=== PATIENT | female | born 1955 | race Caucasian/White ===

== ENCOUNTER 2016-10-13 21:11 | Inpatient (IN) | payer BC ==
[~2016-10-13] VITALS: Ht 162.6 cm; Wt 100.0 kg
[~2016-10-13 21:11] MED LIST: IBUP-1277 PO; ONDA4TAB7 SL
[2016-10-13] MEDS ORDERED: ONDANSETRON INJ 2 MG/ML 2 ML VIAL IV STA (21:37)
[2016-10-13] MEDS ORDERED: MoRPHine SULFATE 10 MG/ML CARP/VIAL IV STA (21:37)
[2016-10-13] MEDS ORDERED: DIPHTHERIA/TETANUS/PERTUSSIS 0.5 ML SYR/VIAL IM. ONE (21:45)
[2016-10-13] MEDS ORDERED: SODIUM CHLORIDE 0.9% 1000ML 1,000 ML IV ONE (21:45)
[2016-10-13 21:47] LABS: BASO % 0.2 %; BASO ABS # 0.03 K/uL (0-0.2); COMPLETE YES; EOS % 1.2 %; HEMATOCRIT 35.8 % (37-47); IG% 0.2 %; LYMPH % 30.7 %; MEAN CELL VOLUME 79.6 fL (80-100); MEAN CORPUSCULAR HEMOGLOBIN 26.4 pg (25-34); MEAN CORPUSCULAR HGB CONC 33.2 g/dl (32-36); MEAN PLATELET VOLUME 9.2 fL (7.4-10.4); MONO % 7.7 %; PLATELET COUNT 323 K/uL (130-400); WHITE BLOOD COUNT 12.04 K/uL (4.8-10.8)
[2016-10-13 22:01] LABS: BUN/CREATININE RATIO 17.2 (10-20); CALCIUM 8.6 mg/dl (8.5-10.1); CREATININE 0.83 mg/dl (0.60-1.20); POTASSIUM 3.8 mmol/L (3.5-5.1)
[2016-10-13 22:04] LABS: ALB/GLOB RATIO 0.9 (0.9-2)
[2016-10-13] MEDS ORDERED: ESCI1TAB10 PO (22:39)
[2016-10-13] MEDS ORDERED: FENTANYL CITRATE INJ 50 MCG/1 ML 2 ML VIAL ONE (22:50)
[2016-10-13] MEDS ORDERED: MIDAZOLAM HCL 1 MG/ML 2ML VIAL ONE (22:50)
[2016-10-13] MEDS ORDERED: CEFAZOLIN IV 2,000 MG/60 ML D5W IV ONE (23:08)
[2016-10-13] MEDS ORDERED: CEFAZOLIN SOD 1000MG/55 ML D5W IV ONE (23:08)
[2016-10-13] MEDS ORDERED: ATROPINE SULFATE 0.1 MG/ML 5ML SYR IV PRN (23:15)
[2016-10-13] MEDS ORDERED: PROMETHAZINE HCL INJ 12.5 MG in SODIUM CHLORIDE 0.9% 50ML 50 ML IV PRN (23:15)
[2016-10-13] MEDS ORDERED: HYDROmorphone INJ 2 MG/ML SYR/VIAL IV PRN (23:15)
[2016-10-13] MEDS ORDERED: ONDANSETRON INJ 2 MG/ML 2 ML VIAL IV PRN (23:15)
--- NOTE | 2016-10-13 23:50 | GYNECOLOGICAL CONSULTATION ---
DATE OF ADMISSION: 10/13/2016 PRINCIPAL DIAGNOSIS: Extensive vaginal laceration and perineal laceration. HISTORY OF PRESENT ILLNESS: The patient is a 60-year-old 3, para 3-0-0-3 white female who lost her footing on a flight of stairs and fell awkwardly over the railing, potentially catching a coat hook on the way down. She has contusions on her ankle, wrist, left avila as well as a contusion on top of her head. She did not lose consciousness; however, her biggest injury appears to be significant vaginal bleeding from this tear. She soaked [address] into the hospital. Upon arrival here, there was more clotting and soaking of several chucks. Initial packing efforts were unsuccessful. Vaginal exam reveals alot of clots and active bleeding so examination was difficult. She also has a perineal laceration present. There is no hematoma present. The vagina was then packed and bleeding has been significantly reduced, although there is still a small amount of bleeding present. Because of the significant & ongoing bleeding , an exam & repair under anesthesia is warranted. The patient agrees with this plan. Family has been notified and all of their questions have been answered. PAST MEDICAL HISTORY: Unremarkable. PAST SURGICAL HISTORY: Significant for tubal ligation, section and a total abdominal hysterectomy and bilateral oophorectomy in 2009. ALLERGIES: She has no known drug allergies. MEDICATIONS: She takes no medications regularly. SOCIAL HISTORY: She is a social drinker. She does not smoke. PHYSICAL EXAMINATION: VITAL SIGNS: Blood pressure is stable at 129/77, pulse is 72. LUNGS: Clear to auscultation. HEART: Regular rate and rhythm. ABDOMEN: Soft and nontender. PELVIC: Contusions as noted in the HPI. There appears to be a second degree laceration of the perineum at least. No palpable vaginal hematoma present at this time. ASSESSMENT: A 60-year-old with at least an extensive perineal laceration actively bleeding, to be repaired in the OR under general anesthetic. Please see the orders for further directions. MTDD
[2016-10-13] MEDS ORDERED: ONDANSETRON INJ 2 MG/ML 2 ML VIAL ONE (23:54)
[2016-10-13] MEDS ORDERED: SUCCINYLCHOLINE 100MG/5ML SYR IV ONE (23:54)
[2016-10-13] MEDS ORDERED: LIDOCAINE HCL 2% 2 ML VIAL (20MG/ML) ONE (23:54)
[2016-10-13] MEDS ORDERED: METOCLOPRAMIDE HCL INJ 5 MG/ML 2 ML VIAL ONE (23:54)
[2016-10-13] MEDS ORDERED: PROPOFOL IV EMULSION 10 MG/ML 20 ML VIAL IV ONE (23:54)
[2016-10-14] VITALS (10 sets, daily range): BP systolic 107–126; BP diastolic 57–68; PULSE 69–94; TEMP 36.5–37.2; O2SAT 97–98; Ht 162.6 cm; Wt 100.0 kg
--- NOTE | 2016-10-14 00:21 | Anesthesiology Progress Note ---
Anesthesia Post Op Note Date & Time Oct 14, 2016 at 00:21 Vital Signs Vital Signs Past 12 Hours Date Time Temp Pulse Resp B/P (MAP) Pulse Ox O2 Delivery O2 Flow Rate FiO2 10/13/16 21:56 72 20 129/77 98 Room Air 10/13/16 21:33 67 10/13/16 21:19 36.4 70 18 150/86 98 Room Air Notes Mental Status: alert / awake / arousable, participated in evaluation Pt Amnestic to Procedure: Yes Nausea / Vomiting: adequately controlled Pain: adequately controlled Airway Patency, RR, SpO2: stable & adequate BP & HR: stable & adequate Hydration State: stable & adequate Anesthetic Complications: no major complications apparent
[2016-10-14] MEDS ORDERED: BENZOCAINE 20% AER SPR 82.5 GM CAN ONE ×2 (00:42→13:46)
[2016-10-14] MEDS ORDERED: IBUPROFEN 600 MG TAB PO PRN (00:45)
[2016-10-14] MEDS ORDERED: OXYCODONE/ACETAMINOPHEN 5-325 TAB PO PRN ×3 (00:45→06:00)
[2016-10-14] MEDS ORDERED: ONDANSETRON INJ 2 MG/ML 2 ML VIAL IV PRN ×2 (00:45→06:00)
[2016-10-14] MEDS ORDERED: PROMETHAZINE HCL INJ 25 MG in SODIUM CHLORIDE 0.9% 50ML 50 ML IV PRN (00:45)
--- NOTE | 2016-10-14 00:52 | Discharge Instructions ---
Discharge Instructions Date of Service Oct 14, 2016. Admission Reason for Admission: Fall Down Half Flight Of Stairs - Bleeding Discharge Discharge Diagnosis / Problem: recovery from laceration repair Discharge Goals Goal(s): Routine recovery after surgery Medications Continue Dispensed Medications: dermaplast Activity Recommendations Activity Limitations: per Instructions/Follow-up section Exercise/Sports Limitations: gradually increase as tolerated May Resume Sexual Activity: after follow-up appointment Shower/Bathe: no limitations . Instructions / Follow-Up Instructions / Follow-Up ACTIVITY RECOMMENDATIONS: Activity: * During the first week at home, your activity should be similar to that done at the hospital prior to discharge. Your primary activity is in-house walking interspersed with rest periods. Preparing lunch for yourself is acceptable. You may go up and down stairs. Try to stay up progressively longer periods of time to help regain your strength more quickly. * During the second week at home, activities should include some meal preparation, walking to strengthen abdominal muscles and riding in a car. You may drive a car and make brief shopping trips at the end of the second week at home. * Lifting should not exceed 15-20 pounds during the first month after surgery. * Sexual intercourse can usually be resumed about 6 weeks after surgery depending on findings at your post-operative examinations. Bathing: * Showers or baths are permissible. Sitting in four to six inches of hot water (sitz bath) is often comforting after vaginal surgery and is permitted at any time. A sitz bath at bedtime can also assist in a better night's sleep. SPECIAL CARE INSTRUCTION: Keep ice to the vaginal area for the next 12 hours. You may then start sitz baths twice a day for the next 2 weeks. You may use Dermaplast spray to the stitches as needed for pain relief. Wash the area gently with mild soap & warm water daily then pat dry. The stitches will start to dissolve after about 2-3 weeks. You may use a squirt bottle to clean the area after using the toilet. Plain warm water is all that is needed to cleanse the area. Vaginal Discharge: * Odorous, blood-tinged or brownish discharge may be present for one to three weeks after surgery. * Stitches may be passed vaginally. * Bleeding may be somewhat increased approximately two weeks after surgery, which is related to the stitches dissolving. * If bleeding becomes free flowing, notify our office at . Bowel Care: * Constipation after surgery is very common. Foods that promote bowel activity (bran, fruit, prune juice) should be included in your diet. * A capsule, DIALOSE-PLUS, can be purchased without a prescription and can be taken daily (one or two capsules) to assist in promoting bowel activity. * If you have had vaginal surgery involving your rectum, we will discuss this when discharged from the hospital. Temperature: * Any fever above 100.4 degrees F should be reported to our office at . FOLLOW-UP: Post-Operative Appointments: * Individual instructions will have been given about the timing of your first examination, but this is usually at the end of the second week home. * You will need to call the office at soon after discharge to make the appointment for your post-op check-up if it has not already been scheduled. * Additional information regarding activity, sexual intercourse and when to return to work will be given at this appointment. WE WISH YOU A SPEEDY RECOVERY! Current Hospital Diet Patient's current hospital diet: Discharge Diet Recommended Diet: Regular Diet Procedures Procedures Performed: Repair of Vaginal Laceration Pending Studies Studies pending at discharge: no Medical Emergencies . Who to Call and When: Medical Emergencies: If at any time you feel your situation is an emergency, please call 911 immediately. . Non-Emergent Contact Non-Emergency issues call your: [employer] . . "Provider Documentation" section prepared by Armida Agarwal. . VTE Core Measure Inpt VTE Proph given/why not?: Treatment not indicated
[2016-10-14] MEDS ORDERED: MTR600X PO (00:53)
[2016-10-14] MEDS ORDERED: OXYC-57 PO (00:53)
--- NOTE | 2016-10-14 01:26 | OPERATIVE REPORT ---
DATE OF OPERATION: 10/14/2016 PREOPERATIVE DIAGNOSIS: Perineal laceration with significant bleeding. POSTOPERATIVE DIAGNOSIS: Same, with intact vaginal mucosa, rectum and urethra. PROCEDURE: Repair of perineal laceration and exam under anesthesia. ANESTHESIA: General endotracheal. BLOOD LOSS: 500 mL HISTORY: The patient is a 60-year-old 3, para 3-0-0-3 white female, whose lost her footing on a flight of stairs and fell awkwardly over the railing, potentially catching a coat hook on the way down. She has contusions on her ankle and wrist as well as on her head. She did not lose consciousness; however, her biggest injury appears to be significant vaginal bleeding from a perineal tear, a possible vaginal tear. The injury was bleeding enough that an exam in the Emergency Room was unsuccessful. Therefore, she is being taken to the OR for exam under anesthesia and repair of the laceration. GROSS FINDINGS: The right labium is lacerated to the depth of the bone. There is significant bleeding still coming from this laceration. The vaginal mucosa was intact, rectum is intact and urethra is also intact. There is significant bruising on both buttocks as well, but no evidence of a hematoma. PROCEDURE: After the patient received adequate general endotracheal anesthesia, she was prepped and draped in the usual sterile fashion. After her bladder was emptied for 100 mL of clear urine, the vagina and perineum were inspected with findings as noted above. The right labial laceration, which was a third degree laceration, was repaired in a running locking fashion with 3-0 chromic. Hemostasis was noted to be excellent at the end of the case. The laceration site was then observed for any development of hematoma in the vaginal vault. Once this appeared to be stable, the case was terminated. I attest to the content of the Intraoperative Record and any orders documented therein. Any exception s are noted below.
[2016-10-14] MEDS ORDERED: SODIUM CHLORIDE 0.9% 1000ML 1,000 ML IV ONE (04:00)
[2016-10-14 04:20] LABS: ISTAT CREATININE 0.7 mg/dl (0.6-1.3); ISTAT HEMOGLOBIN 8.8 g/dl (12.0-16.0); ISTAT IONIZED CALCIUM 1.14 mmol/l (1.12-1.32)
[2016-10-14 04:55] LABS: HEMATOCRIT 27.5 % (37-47)
[2016-10-14] MEDS ORDERED: CEFAZOLIN IV 3,000 MG/65 ML D5W IV ONE (06:00)
[2016-10-14] MEDS ORDERED: ALUMINUM/MAGNESIUM/SIMETH (MAALOX MAX) 30 ML UDC PO PRN (06:00)
[2016-10-14] MEDS ORDERED: ACETAMINOPHEN 325 MG TAB PO PRN (06:00)
[2016-10-14] MEDS ORDERED: MAGNESIUM HYDROXIDE SUSP 30 ML UDC PO PRN (06:00)
[2016-10-14] MEDS ORDERED: POLYETHYLENE (MIRALAX) 17 GM PACK PO PRN (06:00)
--- NOTE | 2016-10-14 06:20 | History and Physical ---
History & Physical Date & Time of Service: Oct 14, 2016 at 06:06 Chief Complaint: Fall Down Half Flight Of Stairs - Bleeding Primary Care Physician: RV. Vazquez MD History of Present Illness Source: patient 60 y/o F Hx depression. Pt fell down a flight of stairs and sustained a pelvic straddle injury due to a fall onto a clothing rack. The pt was initially evaluated by the [facility] [facility] service and proceeded to the OR for repair of a vaginal laceration. Following recovery, she was intended for discharge. Upon standing however, she became lightheaded and hypotensive with a systolic pressure in the 70s. A repeat hemoglobin was obtained revealing a 3 point drop. Past Medical/Surgical History Medical Problems: (1) Restless leg syndrome Status: Chronic Surgical Problems: (1) H/O tubal ligation Status: Chronic (2) H/O: hysterectomy Status: Chronic Social History Smoking Status: Never Smoker Marital Status: Occupational Status: employed Immunizations History of Influenza Vaccine: Unknown History of Tetanus Vaccine?: Unknown History of Pneumococcal: Unknown History of Hepatitis B Vaccine: Unknown Multi-Drug Resistant Organisms History of MDRO: No Allergies Coded Allergies: No Known Allergies (Unverified , 12/28/09) Home Medications Scheduled Escitalopram Oxalate (Lexapro), 20 MG PO DAILY Scheduled PRN Ibuprofen (Ibuprofen), 600 MG PO Q6H PRN for Pain Oxycodone/Acetaminophen 5MG/325MG (Percocet 5MG/325MG), 1 TAB PO Q4H PRN for Pain (pain scale 1-5) Review of Systems Constitutional: No fever, No chills, No sweats Eyes: No worsening of vision, No eye pain ENT: No hearing loss, No unusual epistaxis, No nasal symptoms Respiratory: No cough, No sputum, No wheezing Cardiovascular: No chest pain, No orthopnea, No PND Abdomen: No pain, No nausea, No vomiting Musculoskeletal: + problem reported (Pelvic pain) Genitourinary - Female: + problem reported (Pelvic - vaginal pain), No dysuria , No urinary frequency, No urinary urgency Neurologic: No memory loss, No paralysis, No weakness Psychiatric: No depression symptoms Endocrine: No fatigue Integumentary: No rash Allergic / Immunologic: No environmental allergies Physical Exam Vital Signs Date Time Temp Pulse Resp B/P (MAP) Pulse Ox O2 Delivery O2 Flow Rate FiO2 10/14/16 05:18 82 10/14/16 05:10 113/67 10/14/16 04:35 62 17 100 Nasal Cannula 2.0 10/14/16 04:30 65 21 116/64 10/14/16 04:00 66 15 117/65 97 Nasal Cannula 2.0 10/14/16 03:57 23 96 Nasal Cannula 2.0 10/14/16 03:56 96 Nasal Cannula 2.0 10/14/16 03:53 67 24 106/58 89 Room Air 10/14/16 03:45 92 62/34 10/14/16 03:14 74 20 99 10/14/16 02:44 74 25 98 10/14/16 02:40 15 99 Nasal Cannula 2.0 10/14/16 02:39 99 Nasal Cannula 2.0 10/14/16 02:38 66 17 87 Room Air 10/14/16 02:27 75 18 97/60 91 Room Air 10/14/16 02:27 97/60 10/14/16 01:44 79 20 94 10/14/16 01:41 79 10/14/16 01:39 79 20 97/55 94 10/14/16 01:20 36.7 74 20 95/59 (70) 96 Room Air 10/14/16 01:05 84 18 95/59 93 Room Air 10/14/16 00:45 88 16 101/57 (65) 96 Oxymask 2 10/14/16 00:40 36.9 87 18 95/58 (64) 94 Oxymask 2 10/14/16 00:35 36.7 87 18 105/67 (80) 95 Oxymask 2 10/14/16 00:30 89 16 99/68 (72) 97 Oxymask 2 10/14/16 00:25 91 18 111/58 (71) 96 Oxymask 5 10/14/16 00:20 36.5 87 20 104/64 (85) 97 Oxymask 8 10/14/16 00:15 36.4 88 16 105/76 (96) 98 Oxymask 10 10/13/16 21:56 72 20 129/77 98 Room Air 10/13/16 21:33 67 10/13/16 21:19 36.4 70 18 150/86 98 Room Air General Appearance: WD/WN, no apparent distress, + pertinent finding ( Overweight, pale, middle aged female in no distress) Head: normocephalic, atraumatic Eyes: normal inspection ENT: normal ENT inspection, pharynx normal Neck: supple, no JVD Respiratory/Chest: chest non-tender, lungs clear, normal breath sounds Cardiovascular: regular rate, rhythm, no edema, no gallop, no JVD, no murmur, normal peripheral pulses Abdomen/GI: normal bowel sounds, non tender, soft Genitourinary - Female: + pertinent finding (repair of vaginal laceration) Back: normal inspection, no CVA tenderness, no muscle spasm Extremities/Musculoskelatal: normal inspection, no calf tenderness, normal capillary refill, no pedal edema, normal range of motion 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, no motor/sensory deficits, alert, normal reflexes, oriented x 3, + pertinent finding (lightheaded with standing) Skin: normal color, warm/dry, no rash Diagnostics Laboratory Results Results Past 24 Hours Test 10/13/16 21:36 10/14/16 03:51 10/14/16 04:07 Range/Units White Blood Count 12.04 4.8-10.8 K/uL Red Blood Count 4.50 4.2-5.4 M/uL Hemoglobin 11.9 8.8 12.0-16.0 g/dL Hematocrit 35.8 27.5 37-47 % Mean Corpuscular Volume 79.6 80-100 fL Mean Corpuscular Hemoglobin 26.4 25-34 pg Mean Corpuscular Hemoglobin Concent 33.2 32-36 g/dl Platelet Count 323 130-400 K/uL Mean Platelet Volume 9.2 7.4-10.4 fL Neutrophils (%) (Auto) 60.0 % Lymphocytes (%) (Auto) 30.7 % Monocytes (%) (Auto) 7.7 % Eosinophils (%) (Auto) 1.2 % Basophils (%) (Auto) 0.2 % Neutrophils # (Auto) 7.21 1.4-6.5 K/uL Lymphocytes # (Auto) 3.70 1.2-3.4 K/uL Monocytes # (Auto) 0.93 0.11-0.59 K/uL Eosinophils # (Auto) 0.14 0-0.5 K/uL Basophils # (Auto) 0.03 0-0.2 K/uL RDW Standard Deviation 41.5 36.4-46.3 fL RDW Coefficient of Variation 14.4 11.5-14.5 % Immature Granulocyte % (Auto) 0.2 % Immature Granulocyte # (Auto) 0.03 0.00-0.02 K/uL Sodium Level 140 136-145 mmol/L Potassium Level 3.8 3.5-5.1 mmol/L Chloride Level 108 98-107 mmol/L Carbon Dioxide Level 29 21-32 mmol/L Anion Gap 3.0 18.0 16-25 mmol/L Blood Urea Nitrogen 14 7-18 mg/dl Creatinine 0.83 0.60-1.20 mg/dl Est Creatinine Clear Calc Drug Dose 83.9 ml/min Estimated GFR () 89.5 Estimated GFR (Non- 77.2 BUN/Creatinine Ratio 17.2 10-20 Random Glucose 143 70-99 mg/dl Calcium Level 8.6 8.5-10.1 mg/dl Total Bilirubin 0.2 0.2-1 mg/dl Aspartate Amino Transf (AST/SGOT) 15 15-37 U/L Alanine Aminotransferase (ALT/SGPT) 22 12-78 U/L Alkaline Phosphatase 105 45-117 U/L Total Protein 7.0 6.4-8.2 gm/dl Albumin 3.4 3.4-5.0 gm/dl Globulin 3.6 2.5-4.0 gm/dl Albumin/Globulin Ratio 0.9 0.9-2 Bedside Hemoglobin 8.8 12.0-16.0 g/dl Bedside Hematocrit 26 37-47 % Bedside Sodium 140 135-144 mEq/L Bedside Potassium 4.0 3.3-5.0 mEq/L Bedside Chloride 105 101-112 mEq/L Bedside Total CO2 22 24-31 mEq/l Bedside Blood Urea Nitrogen 13 7-18 mg/dl Bedside Creatinine 0.7 0.6-1.3 mg/dl Bedside Glucose (other) 159 70-99 mg/dl Bedside Ionized Calcium (Telly) 1.14 1.12-1.32 mmol/l Impression Assessment and Plan 60 y/o F Hx depression. Pt fell down a flight of stairs and sustained a pelvic straddle injury due to a fall onto a clothing rack. The pt was initially evaluated by the [employer] service and proceeded to the OR for repair of a vaginal laceration. Following recovery, she was intended for discharge. Upon standing however, she became lightheaded and hypotensive with a systolic pressure in the 70s. A repeat hemoglobin was obtained revealing a 3 point drop. The pt will be assigned to telemetry. Due to blood loss associated with hypotension, she will be provided with a blood transfusion. She is having considerable difficulty walking so that we have consulted PT and OT. Hemoglobin will be trended and if she exhibits additional decline we should inform the surgical service. Full code - SCDs Total time for this admit including review of labs, meds, imaging - discussion with pt and ER attending - 35 min VTE Prophylaxis VTE Risk Assessment Done? Y/N: Yes Risk Level: Low Given or contraindicated: Treatment not indicated
--- NOTE | 2016-10-14 06:27 | DIAGNOSTIC IMAGING REPORT ---
CT HEAD WITHOUT CONTRAST (CT) CLINICAL HISTORY: Head trauma. Head pain. COMPARISON STUDY: No previous studies for comparison. TECHNIQUE: Axial CT of the brain is performed from the vertex to the skull base. IV contrast was not administered for this examination. A dose lowering technique was utilized adhering to the principles of ALARA. CT DOSE: 638.56 mGycm FINDINGS: No intra or extra-axial mass lesions are visualized. There is no CT evidence of acute cortical infarction. There is no evidence of midline shift. There is no acute hemorrhage. No calvarial fractures are visualized. There is a scalp hematoma at the posterior vertex There is no evidence of pathologic ventricular dilatation. There is no evidence of acute sinusitis IMPRESSION: Scalp hematoma. No acute intracranial findings. Electronically signed by: Daniel Singh M.D. 10/14/2016 6:26 AM Dictated Date/Time: 10/14/2016 6:25 AM
[2016-10-14] MEDS ORDERED: IV FLUIDS COMPLETED PRN (06:30)
--- NOTE | 2016-10-14 06:57 | DIAGNOSTIC IMAGING REPORT ---
CT ABD/PELVIS IV AND ORAL CONT CLINICAL HISTORY: Abdominal pain status post trauma. Fall down steps. COMPARISON STUDY: None. TECHNIQUE: Following the IV administration of 93 mL of Optiray-320, CT scan of the abdomen and pelvis was performed from the lung bases to the proximal femurs. Images are reviewed in the axial, sagittal, and coronal planes. IV contrast was administered without complication. A dose lowering technique was utilized adhering to the principles of ALARA. CT DOSE: 1067.06 mGycm FINDINGS: Lower chest: There are bibasal atelectatic changes. Liver: There is mild hepatic steatosis. No focal masses are visualized. Gallbladder: There is equivocal minor pericholecystic edema. Spleen: Normal in size and attenuation. Pancreas: There is enhancement GDS hypodensity within the pancreatic head measuring 23 mm. There is no pancreatic ductal dilatation. Adrenal glands: Unremarkable. Kidneys: There is symmetric renal cortical enhancement. The kidneys are normal in size without hydronephrosis. Bowel: There are no transition zones indicate bowel obstruction. There is no acute diverticulitis. There are no extraluminal gas collections. There are no findings to indicate acute appendicitis. Peritoneum: There is no intraperitoneal free air or abdominal ascites. Vasculature: The abdominal aorta is normal in course and caliber. Adenopathy: None. Pelvic viscera: The uterus appears surgically absent. There is mild nonspecific right perineal edema. Clinical correlation of this area is recommended. There is no associated fracture. Skeletal structures: No destructive osseous lesions are seen. IMPRESSION: 1. No evidence of acute intra-abdominal or pelvic injury 2. Equivocal mild pericholecystic edema 3. Subtle pancreatic head hypodensity without evidence of ductal dilatation. This could be inflammatory or neoplastic. Short-term follow-up is recommended. Correlation with pancreatic enzymes is recommended. 4. Nonspecific edema of the right perineum. Clinical correlation is advocated. Electronically signed by: Daniel Singh M.D. 10/14/2016 6:55 AM Dictated Date/Time: 10/14/2016 6:38 AM
--- NOTE | 2016-10-14 07:06 | DIAGNOSTIC IMAGING REPORT ---
CHEST 2 VIEWS ROUTINE HISTORY: Fall off stairs COMPARISON: Chest 08/22/2013. FINDINGS: The lungs are clear. Cardiac silhouette remains borderline enlarged.. No pleural effusions. No pneumothorax. IMPRESSION: No significant change compared to the prior study. No acute process. Electronically signed by: Nam Vargas M.D. 10/14/2016 7:05 AM Dictated Date/Time: 10/14/2016 7:03 AM
--- NOTE | 2016-10-14 07:07 | DIAGNOSTIC IMAGING REPORT ---
PELVIS/BILATERAL HIP 2 VIEWS CLINICAL HISTORY: Fall. ?Pelvic injury. Pelvic pain. COMPARISON STUDY: None. FINDINGS: No fracture or dislocation within the pelvis or hips. The sacrum is intact. There is a transitional vertebra at the lumbar sacral junction. Calcifications within the right deep pelvis are nonspecific but favor phleboliths. IMPRESSION: No fracture or dislocation within the pelvis or hips. Electronically signed by: Nam Vargas M.D. 10/14/2016 7:06 AM Dictated Date/Time: 10/14/2016 7:05 AM
--- NOTE | 2016-10-14 07:09 | DIAGNOSTIC IMAGING REPORT ---
LEFT TIBIA/FIBULA 2 VIEWS ROUTINE CLINICAL HISTORY: fall, left low leg pain COMPARISON STUDY: None. FINDINGS: Soft tissue swelling/edema within the lateral aspect of the left lower leg. No radiopaque foreign bodies. No fracture or dislocation. IMPRESSION: No fracture or dislocation within the left lower leg. Electronically signed by: Nam Vargas M.D. 10/14/2016 7:08 AM Dictated Date/Time: 10/14/2016 7:06 AM
--- NOTE | 2016-10-14 07:15 | EMERGENCY ROOM VISIT NOTE ---
History First contact with patient: 21:29 Chief Complaint: FALL Stated Complaint: FALL DOWN HALF FLIGHT OF STAIRS - BLEEDING History of Present Illness The patient is a 60 year old female who presents to the Emergency Room with complaints of fall that occurred just prior to arrival. The patient is accompanied by her and additional family members. Evidently the patient was walking down her basement stairs, when she slipped, and fell. The patient did not tumble down the stairs, but instead fell off to the side, over the railing, and landed on a concrete floor. The patient was able to stand and move with the help of her family who heard her fall. The patient was noted to have blood in her groin. She was nauseated and did have one episode of emesis. The patient did not lose consciousness with the event, and had a minimal time on the ground itself. The patient does not have complaints of head pain, neck pain, chest pain, chest tightness, shortness of breath, abdominal pain, pelvic, or extremity pain. She did not have lightheadedness or dizziness before or after the event. The patient continues with bleeding in her groin from unknown source. She is unsure of her last tetanus status. She does not take blood thinners and considers herself otherwise usually healthy. She rates her current discomfort a 4/10. Review of Systems More than 10 systems were reviewed and otherwise negative with the exception of history of present illness. Past Medical/Surgical History Medical Problems: (1) Hypotension (2) Pelvic straddle injury (3) Restless leg syndrome Surgical Problems: (1) H/O tubal ligation (2) H/O: hysterectomy Family History No pertinent family history Social History Smoking Status: Never Smoker Marital Status: Housing Status: lives with family Occupation Status: employed Current/Historical Medications Scheduled Escitalopram Oxalate (Lexapro), 20 MG PO DAILY Scheduled PRN Ibuprofen (Ibuprofen), 600 MG PO Q6H PRN for Pain Oxycodone/Acetaminophen 5MG/325MG (Percocet 5MG/325MG), 1 TAB PO Q4H PRN for Pain (pain scale 1-5) Physical Exam Vital Signs Date Time Temp Pulse Resp B/P (MAP) Pulse Ox O2 Delivery O2 Flow Rate FiO2 10/14/16 06:00 98/58 10/14/16 05:45 70 18 100 Nasal Cannula 2.0 10/14/16 05:30 103/63 10/14/16 05:18 82 10/14/16 05:15 80 20 94 Nasal Cannula 2.0 10/14/16 05:10 113/67 10/14/16 04:35 62 17 100 Nasal Cannula 2.0 10/14/16 04:30 65 21 116/64 10/14/16 04:00 66 15 117/65 97 Nasal Cannula 2.0 10/14/16 03:57 23 96 Nasal Cannula 2.0 10/14/16 03:56 96 Nasal Cannula 2.0 10/14/16 03:53 67 24 106/58 89 Room Air 10/14/16 03:45 92 62/34 10/14/16 03:14 74 20 99 10/14/16 02:44 74 25 98 10/14/16 02:40 15 99 Nasal Cannula 2.0 10/14/16 02:39 99 Nasal Cannula 2.0 10/14/16 02:38 66 17 87 Room Air 10/14/16 02:27 75 18 97/60 91 Room Air 10/14/16 02:27 97/60 10/14/16 01:44 79 20 94 10/14/16 01:41 79 10/14/16 01:39 79 20 97/55 94 10/14/16 01:20 36.7 74 20 95/59 (70) 96 Room Air 10/14/16 01:05 84 18 95/59 93 Room Air 10/14/16 00:45 88 16 101/57 (65) 96 Oxymask 2 10/14/16 00:40 36.9 87 18 95/58 (64) 94 Oxymask 2 10/14/16 00:35 36.7 87 18 105/67 (80) 95 Oxymask 2 10/14/16 00:30 89 16 99/68 (72) 97 Oxymask 2 10/14/16 00:25 91 18 111/58 (71) 96 Oxymask 5 10/14/16 00:20 36.5 87 20 104/64 (85) 97 Oxymask 8 10/14/16 00:15 36.4 88 16 105/76 (96) 98 Oxymask 10 10/13/16 21:56 72 20 129/77 98 Room Air 10/13/16 21:33 67 10/13/16 21:19 36.4 70 18 150/86 98 Room Air Pain Rating (0-10): 8.0 Physical Exam VITALS: Vitals are noted on the nurse's note and reviewed by myself. Vital signs stable. GENERAL: White female who appears moderately uncomfortable secondary to her stated complaint. She is laying flat in her emergency department bed with obvious active bleeding from her groin. HEAD: There is a very small right sided occipital hematoma without active bleeding. No benavides sign or raccoon eyes. EARS: External ear normal. External auditory canals clear, tympanic membranes pearly cox without erythema or effusion bilaterally. No hemotympanum EYES: Pupils equal round and reactive to light and accommodation. Conjunctivae without injection, sclerae without icterus. Extraocular movements intact. No hyphema NOSE: Patent, turbinates without inflammation or discharge. No epistaxis MOUTH: Mucous membranes moist. Tonsils are not enlarged. Pharynx without erythema, blood, or exudate. Uvula midline. Airway patent. NECK: Supple without nuchal rigidity. No lymphadenopathy. No thyromegaly. Cervical spine is nontender. HEART: Regular rate and rhythm without murmurs gallops or rubs. LUNGS: Clear to auscultation bilaterally without wheezes, rales or rhonchi. No retractions or accessory muscle use. No significant chest wall pain. No crepitus. ABDOMEN: Positive normal bowel sounds x 4. Soft, nontender, without masses or organomegaly. No guarding or rebound tenderness. No CVA tenderness. No obvious tenderness with compression of the pelvis. : Examination was performed in the presence of 2 female nursing director of cardiology service line's who assisted with the exam. There is a significant active bleeding coming from the perivaginal area. The labia do not appear to be the active source of the bleeding. The patient was placed in a pelvic bed, and further inspection reveals a very significant laceration extending from the inferior opening of the vagina towards the rectum, as well as deep into the vaginal vault. Laceration measures at least 7 cm, however this is an estimate as the terminating end of the laceration is within the vaginal vault and not visualized directly. This appears to be very deep and complicated through several layers of tissue. MUSCULOSKELETAL: Bruising is appreciated along the left lateral mid lower leg and medial aspect of distal left lower leg. There are superficial abrasions but no additional lacerations. The patient has full sensation and range of motion throughout. NEURO: Patient was alert and oriented to person place and time. GCS 15. CN II through XII grossly intact. Medical Decision & Procedures ER Provider Diagnostic Interpretation: Preliminary Findings Only See Final Report For Complete Findings CT ABDOMEN & PELVIS: Suggestion of nonspecific edema in the right perineal region. May be due to recent trauma. No definite fracture or dislocation appreciated in the bony pelvis. No acute inflammatory process identified. Preliminary Findings Only See Final Report For Complete Findings CT HEAD: No definite intracranial hemorrhage or mass effect. Laboratory Results 10/13/16 21:36 Red Blood Count 4.50, Mean Corpuscular Volume 79.6, Mean Corpuscular Hemoglobin 26.4, Mean Corpuscular Hemoglobin Concent 33.2, Mean Platelet Volume 9.2, Neutrophils (%) (Auto) 60.0, Lymphocytes (%) (Auto) 30.7, Monocytes (%) (Auto) 7.7, Eosinophils (%) (Auto) 1.2, Basophils (%) (Auto) 0.2, Neutrophils # (Auto) 7.21, Lymphocytes # (Auto) 3.70, Monocytes # (Auto) 0.93, Eosinophils # (Auto) 0.14, Basophils # (Auto) 0.03 10/14/16 03:51 10/13/16 21:36 Test 10/13/16 21:36 10/14/16 04:07 White Blood Count 12.04 K/uL (4.8-10.8) Red Blood Count 4.50 M/uL (4.2-5.4) Hemoglobin 11.9 g/dL (12.0-16.0) Hematocrit 35.8 % (37-47) Mean Corpuscular Volume 79.6 fL (80-100) Mean Corpuscular Hemoglobin 26.4 pg (25-34) Mean Corpuscular Hemoglobin Concent 33.2 g/dl (32-36) Platelet Count 323 K/uL (130-400) Mean Platelet Volume 9.2 fL (7.4-10.4) Neutrophils (%) (Auto) 60.0 % Lymphocytes (%) (Auto) 30.7 % Monocytes (%) (Auto) 7.7 % Eosinophils (%) (Auto) 1.2 % Basophils (%) (Auto) 0.2 % Neutrophils # (Auto) 7.21 K/uL (1.4-6.5) Lymphocytes # (Auto) 3.70 K/uL (1.2-3.4) Monocytes # (Auto) 0.93 K/uL (0.11-0.59) Eosinophils # (Auto) 0.14 K/uL (0-0.5) Basophils # (Auto) 0.03 K/uL (0-0.2) RDW Standard Deviation 41.5 fL (36.4-46.3) RDW Coefficient of Variation 14.4 % (11.5-14.5) Immature Granulocyte % (Auto) 0.2 % Immature Granulocyte # (Auto) 0.03 K/uL (0.00-0.02) Est Creatinine Clear Calc Drug Dose 83.9 ml/min Estimated GFR () 89.5 Estimated GFR (Non- 77.2 BUN/Creatinine Ratio 17.2 (10-20) Calcium Level 8.6 mg/dl (8.5-10.1) Total Bilirubin 0.2 mg/dl (0.2-1) Aspartate Amino Transf (AST/SGOT) 15 U/L (15-37) Alanine Aminotransferase (ALT/SGPT) 22 U/L (12-78) Alkaline Phosphatase 105 U/L (45-117) Total Protein 7.0 gm/dl (6.4-8.2) Albumin 3.4 gm/dl (3.4-5.0) Globulin 3.6 gm/dl (2.5-4.0) Albumin/Globulin Ratio 0.9 (0.9-2) Bedside Hemoglobin 8.8 g/dl (12.0-16.0) Bedside Hematocrit 26 % (37-47) Bedside Sodium 140 mEq/L (135-144) Bedside Potassium 4.0 mEq/L (3.3-5.0) Bedside Chloride 105 mEq/L (101-112) Bedside Total CO2 22 mEq/l (24-31) Anion Gap 18.0 mmol/L (16-25) Bedside Blood Urea Nitrogen 13 mg/dl (7-18) Bedside Creatinine 0.7 mg/dl (0.6-1.3) Bedside Glucose (other) 159 mg/dl (70-99) Bedside Ionized Calcium (Telly) 1.14 mmol/l (1.12-1.32) Medications Administered Medications (Trade) Dose Ordered Sig/Dangelo Route Start Time Stop Time Status Last Admin Dose Admin Diphtheria/ Pertussis/Tetanus Vacc (Adacel Inj) 0.5 ml ONCE ONCE IM. 10/13/16 21:45 10/13/16 21:46 DC 10/13/16 21:47 0.5 ML Morphine Sulfate (MoRPHine SULFATE INJ) 6 mg NOW STAT IV 10/13/16 21:37 10/13/16 21:38 DC 10/13/16 21:46 6 MG Sodium Chloride 1,000 ml @ 999 mls/hr Q1H1M ONCE IV 10/13/16 21:45 10/13/16 22:45 DC 10/13/16 21:45 999 MLS/HR Ondansetron HCl (Zofran Inj) 4 mg NOW STAT IV 10/13/16 21:37 10/13/16 21:38 DC 10/13/16 21:46 4 MG Cefazolin Sodium (Ancef 2000mg/60 ml D5W) 2,000 mg STK-MED ONCE IV 10/13/16 23:08 10/13/16 23:09 DC 10/13/16 23:08 2,000 MG Cefazolin Sodium (Ancef 1000mg/55 ml D5W) 1,000 mg STK-MED ONCE IV 10/13/16 23:08 10/13/16 23:09 DC 10/13/16 23:08 1,000 MG Sodium Chloride 1,000 ml @ 999 mls/hr Q1H1M ONCE IV 10/14/16 04:00 10/14/16 05:00 DC 10/14/16 03:59 999 MLS/HR ED Course Physical exam and history were performed. Nursing notes, EMR, and Medication List were personally reviewed. Patient appears to have suffered a fall at home. The triage nurse approached me immediately upon patient arrival and asked me to see the patient. The patient was seen immediately, and it was quite obvious that she had a significant laceration and hemorrhage upon my walking into the ER room. We were able to change the patient into a gown, and utilizing assistance from nursing a pelvic exam was performed. The patient has a significant vaginal laceration with hemorrhage. We attempted to pack the vaginal vault to stop the bleeding, however the patient continued to bleed around the packing. She was passing significant blood clots and bright red blood from the vaginal vault. IV access was established and labs were obtained. The patient was hydrated with normal saline. Her tetanus was updated. She was given morphine and Zofran here in the department. Type and screen was performed. I attempted a second evaluation on a pelvic bed, however this was unsuccessful as well. The case was discussed with my attending physician, Dr. Chen. At this point I contacted the on-call JOB COACHING, Dr. Wells, who was on the labor and delivery floor and was able to rapidly come down to the ER to evaluate the patient. Upon evaluation, Dr Wells agreed the injury was significant and would require formal evaluation and closure in the operating room setting. This appears the best current course of care as the patient appears to have a potentially life-threatening laceration with hemorrhage. We elected to defer further trauma workup as we are not able to control the bleeding here in the department with packing, and the patient does not appear to have neurologic deficit or other traumatic injuries that are more acutely pressing. The patient was in stable condition until going to the operating room suite. Dr. Wells was able to successfully close the wound, which was evidently significantly deep, however was manageable. The patient was taken to the ICU for recovery. Please see specifics within the EMR regarding this aspect of patient care. After recovery the patient was returned to the emergency department for continued evaluation. CT scan of the head was performed, as well as plain films. These were reviewed and do not appear to show obvious significant findings. At this point the immediate life-threatening process was surgically cared for, and we were optimistic that we may be able to discharge the patient home. Unfortunately as the patient was changing from her hospital gown into her normal clothes she became lightheaded and dizzy. Her blood pressure was roughly 60/30 when standing, but returned to normal when laying flat. A repeat H&H was performed, and showed a drop in hemoglobin from 11.9 to 8.8. At this point an additional liter of fluid was hung, her 3rd overall. Her bleeding from the vaginal laceration was significantly under control, and she does not appear to have active hemorrhage or developing hematoma. At this time I do not feel the patient is stable for discharge home. She has a 3 point drop in her hemoglobin. She did have a lightheadedness/near syncopal episode while moving her in preparation for discharge. This could be from blood loss, pain medication, and/or anesthesia, however this could also be the primary cause of the initial injury. I discussed the case with my attending, OB /MERCHANDISE TEAM MANAGER, and the hospitalist service, a CT scan of the abdomen and pelvis was performed at their instruction, and was without acute findings. The patient will be admitted to the medicine floor for further care and management. Please see the hospitalist dictation for further patient course, plan, and disposition. The chart was completed utilizing [employer] Speech Voice Recognition Software. Grammatical errors, random word insertions, pronoun errors, and incomplete sentences are an occasional consequence of this system due to software limitations, ambient noise, and hardware issues. Any formal questions or concerns about the content, text, or information contained within the body of this dictation should be directly addressed to the provider for clarification. . Medical Decision Differential diagnosis: Etiologies such as sprain, strain, fracture, dislocation, subluxation, contusion , trauma, laceration, abrasion, hemorrhage, and others Medication Reconcilliation Current Medication List: was personally reviewed by me Blood Pressure Screening Blood pressure disposition: Elevated BP felt to be situational Impression Primary Impression: Fall Additional Impressions: Traumatic vaginal laceration Contusion of multiple sites Departure Information Dispostion Home / Self-Care Condition GOOD Prescriptions Oxycodone/Acetaminophen 5MG/325MG (PERCOCET 5MG/325MG) Tab 1 TAB PO Q4H Y for Pain (pain scale 1-5), #20 TAB 0 Refills PAIN Prov: Armida Wells M.D. 10/14/16 Ibuprofen (Ibuprofen) 600 Mg Tab 600 MG PO Q6H Y for Pain, #30 TAB 3 Refills Prov: Armida Wells M.D. 10/14/16 Referrals Armida Wells M.D. Forms HOME CARE DOCUMENTATION FORM, Work Instructions, Additional Instructions: Patient was seen and evaluated today in the ER for medical care. Return t work at the instruction of your surgeon, Dr Wells. IMPORTANT VISIT INFORMATION Patient Instructions My [facility] Additional Instructions You were seen and evaluated today on an emergency basis only. This is not a substitute for, or an effort to provide, complete comprehensive medical care. It is not possible to recognize and treat all injuries or illnesses in a single emergency department visit. For this reason it is recommended that you followup with Dr. Wells's office as recommended. Call the office in the morning to make a follow-up. Take your medications as prescribed by Dr. Wells. You are welcome to return to the emergency department anytime with new, worsening, or concerning symptoms. Work Instructions Additional Work Instructions: Patient was seen and evaluated today in the ER for medical care. Return to work at the instruction of your surgeon, Dr Wells. Problem Qualifiers Primary Impression: Fall Encounter type: initial encounter Qualified Codes: W19.XXXA - Unspecified fall, initial encounter Additional Impressions: Traumatic vaginal laceration Encounter type: initial encounter Qualified Codes: S31.41XA - Laceration without foreign body of vagina and vulva, initial encounter
[2016-10-14] MEDS ORDERED: SODIUM CHLORIDE 0.9% 1000ML 1,000 ML IV SCH (08:00)
--- NOTE | 2016-10-14 08:32 | OB/GYN Progress Note ---
DISTRIBUTION DISPATCHER Progress Note Date of Service Oct 14, 2016. Subjective conversation w/ patient, physical exam Voiding: no voiding problems Passing Gas: Yes Diet Tolerance: Regular Diet Notes: patient feeling better now. eating breakfast and sitting up. not as lightheaded as earlier. no vaginal bleeding at this time. pelvis is sore Review of Systems Constitutional: No fever, No chills, No sweats, No weight loss, No weakness, No fatigue, No problem reported Female : No see HPI, No dysuria, No urinary frequency, No hematuria, No incontinence, No abnormal vaginal bleeding, No vaginal discharge, No problem reported Objective Vital Signs Date Time Temp Pulse Resp B/P (MAP) Pulse Ox O2 Delivery O2 Flow Rate FiO2 10/14/16 07:57 36.5 73 16 119/62 98 Nasal Cannula 2.0 10/14/16 07:44 76 18 97/65 100 10/14/16 07:05 76 18 100 Nasal Cannula 2.0 10/14/16 07:00 97/65 10/14/16 06:35 71 17 100 Nasal Cannula 2.0 10/14/16 06:30 96/55 10/14/16 06:05 68 17 99 Nasal Cannula 2.0 10/14/16 06:00 98/58 10/14/16 05:45 70 18 100 Nasal Cannula 2.0 10/14/16 05:30 103/63 10/14/16 05:18 82 10/14/16 05:15 80 20 94 Nasal Cannula 2.0 10/14/16 05:10 113/67 10/14/16 04:35 62 17 100 Nasal Cannula 2.0 10/14/16 04:30 65 21 116/64 10/14/16 04:00 66 15 117/65 97 Nasal Cannula 2.0 10/14/16 03:57 23 96 Nasal Cannula 2.0 10/14/16 03:56 96 Nasal Cannula 2.0 10/14/16 03:53 67 24 106/58 89 Room Air 10/14/16 03:45 92 62/34 10/14/16 03:14 74 20 99 10/14/16 02:44 74 25 98 10/14/16 02:40 15 99 Nasal Cannula 2.0 10/14/16 02:39 99 Nasal Cannula 2.0 10/14/16 02:38 66 17 87 Room Air 10/14/16 02:27 75 18 97/60 91 Room Air 10/14/16 02:27 97/60 10/14/16 01:44 79 20 94 10/14/16 01:41 79 10/14/16 01:39 79 20 97/55 94 10/14/16 01:20 36.7 74 20 95/59 (70) 96 Room Air 10/14/16 01:05 84 18 95/59 93 Room Air 10/14/16 00:45 88 16 101/57 (65) 96 Oxymask 2 10/14/16 00:40 36.9 87 18 95/58 (64) 94 Oxymask 2 10/14/16 00:35 36.7 87 18 105/67 (80) 95 Oxymask 2 10/14/16 00:30 89 16 99/68 (72) 97 Oxymask 2 10/14/16 00:25 91 18 111/58 (71) 96 Oxymask 5 10/14/16 00:20 36.5 87 20 104/64 (85) 97 Oxymask 8 10/14/16 00:15 36.4 88 16 105/76 (96) 98 Oxymask 10 10/13/16 21:56 72 20 129/77 98 Room Air 10/13/16 21:33 67 10/13/16 21:19 36.4 70 18 150/86 98 Room Air Physical Exam General Appearance: WELL-APPEARING, NO APPARENT DISTRESS Abdomen: non tender, soft Extremities: no calf tenderness perineum intact, no appreciable swelling. no evidence of vaginal hematoma. ice pack against perineum is dry. Laboratory Results Last 24 Hours Test 10/13/16 21:36 10/14/16 03:51 10/14/16 04:07 10/14/16 08:26 White Blood Count 12.04 K/uL Red Blood Count 4.50 M/uL Hemoglobin 11.9 g/dL 8.8 g/dL Hematocrit 35.8 % 27.5 % Mean Corpuscular Volume 79.6 fL Mean Corpuscular Hemoglobin 26.4 pg Mean Corpuscular Hemoglobin Concent 33.2 g/dl Platelet Count 323 K/uL Mean Platelet Volume 9.2 fL Neutrophils (%) (Auto) 60.0 % Lymphocytes (%) (Auto) 30.7 % Monocytes (%) (Auto) 7.7 % Eosinophils (%) (Auto) 1.2 % Basophils (%) (Auto) 0.2 % Neutrophils # (Auto) 7.21 K/uL Lymphocytes # (Auto) 3.70 K/uL Monocytes # (Auto) 0.93 K/uL Eosinophils # (Auto) 0.14 K/uL Basophils # (Auto) 0.03 K/uL RDW Standard Deviation 41.5 fL RDW Coefficient of Variation 14.4 % Immature Granulocyte % (Auto) 0.2 % Immature Granulocyte # (Auto) 0.03 K/uL Sodium Level 140 mmol/L Potassium Level 3.8 mmol/L Chloride Level 108 mmol/L Carbon Dioxide Level 29 mmol/L Anion Gap 3.0 mmol/L 18.0 mmol/L Blood Urea Nitrogen 14 mg/dl Creatinine 0.83 mg/dl Est Creatinine Clear Calc Drug Dose 83.9 ml/min Estimated GFR () 89.5 Estimated GFR (Non- 77.2 BUN/Creatinine Ratio 17.2 Random Glucose 143 mg/dl Calcium Level 8.6 mg/dl Total Bilirubin 0.2 mg/dl Aspartate Amino Transf (AST/SGOT) 15 U/L Alanine Aminotransferase (ALT/SGPT) 22 U/L Alkaline Phosphatase 105 U/L Total Protein 7.0 gm/dl Albumin 3.4 gm/dl Globulin 3.6 gm/dl Albumin/Globulin Ratio 0.9 Bedside Hemoglobin 8.8 g/dl Bedside Hematocrit 26 % Bedside Sodium 140 mEq/L Bedside Potassium 4.0 mEq/L Bedside Chloride 105 mEq/L Bedside Total CO2 22 mEq/l Bedside Blood Urea Nitrogen 13 mg/dl Bedside Creatinine 0.7 mg/dl Bedside Glucose (other) 159 mg/dl Bedside Ionized Calcium (Telly) 1.14 mmol/l Assessment and Plan Continue Routine Care: stable perineum s/p repair of 3rd right labial laceration getting 1 unit PRBC's she needs to follow up with BOAT PERSON in 4-6 weeks.
[2016-10-14] MEDS ORDERED: ESCITALOPRAM OXALATE 20 MG TAB PO SCH (09:00)
[2016-10-14] MEDS ORDERED: ACET-1047 PO (13:41)
[2016-10-14 13:45] LABS: AMYLASE 38 U/L (25-115)
--- NOTE | 2016-10-14 13:46 | Discharge Instructions ---
Discharge Instructions Date of Service Oct 14, 2016. Admission Reason for Admission: Blood Loss Anemia, Orthostatic Hypotension Discharge Discharge Diagnosis / Problem: Anemia of acute blood loss, orthostatic hypotension Discharge Goals Goal(s): Improve disease control, Therapeutic intervention Activity Recommendations Activity Limitations: as noted below (as per CORRECTIVE THERAPIST instructions) Exercise/Sports Limitations: until after follow-up appointment Driving or Machine Use: no driving until after follow up appt Remain out of work until seen by your PCP next week. . Instructions / Follow-Up Instructions / Follow-Up You were admitted for a blood transfusion after hemorrhage from your vaginal laceration. You had low blood pressure due to blood loss which improved with IV fluids and the blood transfusion. You should take iron pills and a stool softener twice daily for the next 2-3 weeks. Please follow up with [facility] Dr. Alexis in 4-6 weeks and with your PCP within 1 week. Due to your frequent falls, it is recommended that you get an outpatient referral for Physical Therapy for strengthening and to assess stability of your gait to prevent future falls. Incidentally, you were found to have a possible abnormality of your pancreas on the CT scan done of your abdomen. You should have either a MRI pancreas or a dedicated CT of just the pancreas to further characterize this. Either your PCP or your GI doctor, Dr. Austin, can evaluate this further for you. Current Hospital Diet Patient's current hospital diet: Regular Diet Discharge Diet Recommended Diet: Regular Diet Procedures Procedures Performed: Repair of Vaginal Laceration Pending Studies Studies pending at discharge: no Laboratory Results Last 24 Hours Test 10/13/16 21:36 10/14/16 03:51 10/14/16 04:07 10/14/16 08:26 White Blood Count 12.04 K/uL Red Blood Count 4.50 M/uL Hemoglobin 11.9 g/dL 8.8 g/dL 7.9 g/dL Hematocrit 35.8 % 27.5 % Mean Corpuscular Volume 79.6 fL Mean Corpuscular Hemoglobin 26.4 pg Mean Corpuscular Hemoglobin Concent 33.2 g/dl Platelet Count 323 K/uL Mean Platelet Volume 9.2 fL Neutrophils (%) (Auto) 60.0 % Lymphocytes (%) (Auto) 30.7 % Monocytes (%) (Auto) 7.7 % Eosinophils (%) (Auto) 1.2 % Basophils (%) (Auto) 0.2 % Neutrophils # (Auto) 7.21 K/uL Lymphocytes # (Auto) 3.70 K/uL Monocytes # (Auto) 0.93 K/uL Eosinophils # (Auto) 0.14 K/uL Basophils # (Auto) 0.03 K/uL RDW Standard Deviation 41.5 fL RDW Coefficient of Variation 14.4 % Immature Granulocyte % (Auto) 0.2 % Immature Granulocyte # (Auto) 0.03 K/uL Sodium Level 140 mmol/L Potassium Level 3.8 mmol/L Chloride Level 108 mmol/L Carbon Dioxide Level 29 mmol/L Anion Gap 3.0 mmol/L 18.0 mmol/L Blood Urea Nitrogen 14 mg/dl Creatinine 0.83 mg/dl Est Creatinine Clear Calc Drug Dose 83.9 ml/min Estimated GFR () 89.5 Estimated GFR (Non- 77.2 BUN/Creatinine Ratio 17.2 Random Glucose 143 mg/dl Calcium Level 8.6 mg/dl Total Bilirubin 0.2 mg/dl Aspartate Amino Transf (AST/SGOT) 15 U/L Alanine Aminotransferase (ALT/SGPT) 22 U/L Alkaline Phosphatase 105 U/L Total Protein 7.0 gm/dl Albumin 3.4 gm/dl Globulin 3.6 gm/dl Albumin/Globulin Ratio 0.9 Bedside Hemoglobin 8.8 g/dl Bedside Hematocrit 26 % Bedside Sodium 140 mEq/L Bedside Potassium 4.0 mEq/L Bedside Chloride 105 mEq/L Bedside Total CO2 22 mEq/l Bedside Blood Urea Nitrogen 13 mg/dl Bedside Creatinine 0.7 mg/dl Bedside Glucose (other) 159 mg/dl Bedside Ionized Calcium (Telly) 1.14 mmol/l Test 10/14/16 13:02 Hemoglobin 8.8 g/dL Amylase Level 38 U/L Lipase 63 U/L Work Instructions Additional Instructions: Patient was seen and evaluated today in the ER for medical care. Return to work at the instruction of your surgeon, Dr Wells. Medical Emergencies . Who to Call and When: Medical Emergencies: If at any time you feel your situation is an emergency, please call 911 immediately. . Non-Emergent Contact Non-Emergency issues call your: Primary Care Provider, Enterprise Systems Engineer . . "Provider Documentation" section prepared by Keely Guzman. . VTE Core Measure Inpt VTE Proph given/why not?: Contraindicated
[2016-10-14] MEDS ORDERED: FRRS300 PO (13:48)
[2016-10-14] MEDS ORDERED: CLC100 PO (13:48)
--- NOTE | 2016-11-01 16:22 | Discharge Summary ---
Discharge Summary Date of Service Oct 14, 2016. Discharge Summary Admission Date: Oct 14, 2016 at 06:26 Discharge Date: Oct 14, 2016 Discharge Disposition: Home Principal Diagnosis: Acute blood loss anemia, vaginal laceration,orthostatic hypotension Problems/Secondary Diagnoses: Depression History of recurrent falls Immunizations: Have You Had Influenza Vaccine: Unknown History of Tetanus Vaccine?: Unknown History of Pneumococcal: Unknown History of Hepatitis B Vaccine: Unknown Procedures: Head CT Xrays CT ABD/PELVIS IV AND ORAL CONT CLINICAL HISTORY: Abdominal pain status post trauma. Fall down steps. COMPARISON STUDY: None. TECHNIQUE: Following the IV administration of 93 mL of Optiray-320, CT scan of the abdomen and pelvis was performed from the lung bases to the proximal femurs. Images are reviewed in the axial, sagittal, and coronal planes. IV contrast was administered without complication. A dose lowering technique was utilized adhering to the principles of ALARA. CT DOSE: 1067.06 mGycm FINDINGS: Lower chest: There are bibasal atelectatic changes. Liver: There is mild hepatic steatosis. No focal masses are visualized. Gallbladder: There is equivocal minor pericholecystic edema. Spleen: Normal in size and attenuation. Pancreas: There is enhancement GDS hypodensity within the pancreatic head measuring 23 mm. There is no pancreatic ductal dilatation.Adrenal glands: Unremarkable. Kidneys: There is symmetric renal cortical enhancement. The kidneys are normal in size without hydronephrosis. Bowel: There are no transition zones indicate bowel obstruction. There is no acute diverticulitis. There are no extraluminal gas collections. There are no findings to indicate acute appendicitis. Peritoneum: There is no intraperitoneal free air or abdominal ascites. Vasculature: The abdominal aorta is normal in course and caliber. Adenopathy: None. Pelvic viscera: The uterus appears surgically absent. There is mild nonspecific right perineal edema. Clinical correlation of this area is recommended. There is no associated fracture. Skeletal structures: No destructive osseous lesions are seen. IMPRESSION: 1. No evidence of acute intra-abdominal or pelvic injury 2. Equivocal mild pericholecystic edema 3. Subtle pancreatic head hypodensity without evidence of ductal dilatation. This could be inflammatory or neoplastic. Short-term follow-up is recommended. Correlation with pancreatic enzymes is recommended. 4. Nonspecific edema of the right perineum. Clinical correlation is advocated. Consultations: ACID DUMPER Medication Reconciliation New Medications: Docusate Sodium (Docusate Sodium) 100 Mg Cap 100 MG PO BID for 14 Days, #28 CAP Ferrous Sulfate (Ferrous Sulfate) 325 Mg Tab 325 MG PO BID for 14 Days, #28 OTC Acetaminophen (Mapap) 325 Mg Tab 650 MG PO Q4H PRN for Pain or Fever for 30 Days, TAB Ibuprofen (Ibuprofen) 600 Mg Tab 600 MG PO Q6H PRN for Pain, #30 TAB 3 Refills Continued Medications: Escitalopram Oxalate (Lexapro) 20 Mg Tab 20 MG PO DAILY, TAB Discharge Exam Having soreness in perineum and upper thighs, but otherwise ok, orthostatics improved after 1 unit PRBCs. Pt adamantly denies any abuse towards her. She does admit to depressive symptoms since her son was a heroin addict which has been hard on her. States she has a happy marriage and no problems otherwise. 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 One was tripping up the stairs and had forearm abrasion; the next was tripping over her dog in the middle of the night sustaining facial trauma to left eye and forehead; and then this occasion where she fell down the stairs over the side with no railing and lacerated her perineum on a coat hook below the stairs. Review of Systems: Constitutional: No fever, No chills Eyes: No problem reported ENT: + problem reported (some mild headache over left eye from previous fall the week prior with left periorbital ecchymosis) Respiratory: No shortness of breath Cardiovascular: No chest pain Abdomen: No pain, No nausea, No vomiting Musculoskeletal: No joint pain Genitourinary - Female: + problem reported (soreness in perineum), No vaginal bleeding Neurologic: + problem reported (frequent falls), No memory loss, No weakness , No numbness/tingling, No vertigo, No balance problems Psychiatric: No problem reported Endocrine: No problem reported Hematologic / Lymphatic: No problem reported Integumentary: No problem reported Physical Exam: General Appearance: WD/WN, no apparent distress Eyes: PERRL, EOMI, sclerae normal, + pertinent finding (faint left periorbital ecchymosis, no TTP over entire face) ENT: hearing grossly normal, pharynx normal Neck: supple, no adenopathy, thyroid normal, trachea midline Respiratory/Chest: lungs clear, normal breath sounds, no respiratory distress, no accessory muscle use Cardiovascular: regular rate, rhythm, no edema, no gallop, no JVD, no murmur , normal peripheral pulses Abdomen / GI: normal bowel sounds, non tender, soft, no organomegaly, no pulsatile mass, + pertinent finding (perineum with edema of labia, no active bleeding) Extremities: no calf tenderness, normal capillary refill, no pedal edema, normal range of motion, + pertinent finding (a superficial abrasion x 2 liner and horizontal across anterior left tibia) Neurologic/Psychiatric: donor relations coordinator II-XII nml as tested, no motor/sensory deficits , alert, normal mood/affect, oriented x 3 Skin: normal color, warm/dry, no rash, + pertinent finding (ecchymosis right inner thish, abrasion left anterior tibia, left periorbital ecchymosis as above) Lymphatic: no adenopathy Hospital Course This patient is a 60 y/o female with a history of depression. She fell down a flight of stairs and sustained a pelvic straddle injury due to a fall onto a clothing rack. The pt was initially evaluated by the PREFITTER service and proceeded to the OR for repair of a vaginal laceration. Following recovery, she was intended for discharge. Upon standing however, she became lightheaded and hypotensive with a systolic pressure in the 70s. A repeat hemoglobin was obtained revealing a 3 point drop. She was admitted to telemetry. Due to blood loss associated with hypotension, she was provided with a blood transfusion. Her hemoglobin was trended and remained stable after transfusion. She was advised to take iron and docusate until her blood count returns to normal. She was also advised as an outpatient to either a get CT pancreas or MRI pancreas for her incidental finding of a possible mass in the pancreas. She will f/u with her PCP, as well as GI and PREFITTER. I recommend outpt PT for her history of frequent falls for gait training. Total Time Spent: Greater than 30 minutes This includes examination of the patient, discharge planning, medication reconciliation, and communication with other providers. Discharge Instructions Please refer to the electronic Patient Visit Report (Discharge Instructions) for additional information. Additional Copies To RV. Vazquez MD; Armida Wells M.D.; Long Austin M.D.
== END 2016-10-14 14:56 | disposition home or self-care (01) | DRG 988 ==
LOC: C.EDB 21:13 → C.MSICU 10-14 06:26 → EDBEDREQ 10-14 06:34 → ENRESERV 10-14 07:05
PROVIDERS: ADMIT Internal Medicine; ATTEND Internal Medicine
PROC: 0KQM3ZZ Repair Perineum Muscle, Percutaneous Approach (ICD-10-PCS; principal; 2016-10-14)
DX: S31.41XA Laceration without foreign body of vagina and vulva, initial encounter (principal); D62 Acute posthemorrhagic anemia; W10.9XXA Fall (on) (from) unspecified stairs and steps, initial encounter; Y92.018 Other place in single-family (private) house as the place of occurrence of the external cause; I95.1 Orthostatic hypotension; E66.9 Obesity, unspecified; S90.00XA Contusion of unspecified ankle, initial encounter; S60.219A Contusion of unspecified wrist, initial encounter; S80.12XA Contusion of left lower leg, initial encounter; S00.03XA Contusion of scalp, initial encounter; S30.0XXA Contusion of lower back and pelvis, initial encounter; F32.9 Major depressive disorder, single episode, unspecified; Z79.899 Other long term (current) drug therapy; Z79.1 Long term (current) use of non-steroidal anti-inflammatories (NSAID); Z68.37 Body mass index [BMI] 37.0-37.9, adult; Z23 Encounter for immunization; Z79.891 Long term (current) use of opiate analgesic

== ENCOUNTER → 2016-10-21 | Outpatient (CLI) | payer BC ==
[~2016-10-21] MED LIST changes: +ACET-1047 PO; +CLC100 PO; +ESCI1TAB10 PO; +FRRS300 PO; -IBUP-1277 PO; +MTR600X PO; -ONDA4TAB7 SL
[2016-10-21 16:50] LABS: HEMATOCRIT 27.6 % (37-47)
== END | disposition home or self-care (01) ==
LOC: C.LAB1850 15:04
PROVIDERS: ATTEND Physician Assistant
DX: S39.83XA Other specified injuries of pelvis, initial encounter (principal); X58.XXXA Exposure to other specified factors, initial encounter

== ENCOUNTER 2016-10-25 09:01 | Emergency (ER) | payer BC ==
[~2016-10-25] VITALS: Ht 162.6 cm; Wt 104.2 kg
[2016-10-25 09:04] VITALS: TEMP 36.6; Ht 162.6 cm; Wt 104.2 kg
[2016-10-25] MEDS ORDERED: LIDOCAINE HCL 1% 20 ML VIAL ONE (09:33)
[2016-10-25] MEDS ORDERED: IBUPROFEN 600 MG TAB ONE (10:08)
[2016-10-25 10:31] VITALS: BP 158/84; PULSE 64; O2SAT 95
--- NOTE | 2016-10-25 12:38 | OPERATIVE REPORT ---
DATE OF OPERATION: 10/25/2016 PREOPERATIVE DIAGNOSIS: Persistent bleeding from straddle injury. POSTOPERATIVE DIAGNOSIS: Same. PROCEDURE: Repair of perineal laceration. ESTIMATED BLOOD LOSS: 10 mL. ANESTHESIA: lidocaine 1% for local anesthetic. HISTORY: The patient is a 60-year-old multiparous white female, who had presented on the night of 10/13/2016 with a straddle injury after falling down a flight of stairs. She was taken to the OR and a right labial avulsion and perineal laceration was repaired under general anesthetic. She received 1 unit of blood and was monitored for her other injuries because of the fall and was discharged. She reports now to the Emergency Room after having persistent bleeding after the repair. The bleeding tends to go from being heavy and then when she rested, it becomes light again. Hemoglobin on discharge was 8.7. A followup hemoglobin done on October 21 was the same. She presented to the Emergency Room for further evaluation for the bleeding. On gross findings, the external genitalia showed excellent healing of the right labial avulsion; however, there is bleeding still coming from the perineal area, where the laceration trends towards the labia on the right, which is also still bleeding. There is no evidence of cellulitis or redness. There is no purulent discharge. There is separation of the inferior portion of this laceration. DESCRIPTION OF PROCEDURE: After the patient received adequate local anesthetic with 1% lidocaine, the area had initially been prepped with Betadine, a 3-0 chromic was used to close the tear. Hemostasis was noted to be excellent at the end of the procedure. Neosporin was applied to the suture line. The patient tolerated the procedure well. I attest to the content of the Intraoperative Record and any orders documented therein. Any exceptions are noted below. KRYSTALD
== END 2016-10-25 10:32 | disposition home or self-care (01) ==
LOC: C.EDB 09:02
DX: S39.94XA Unspecified injury of external genitals, initial encounter (principal); X58.XXXA Exposure to other specified factors, initial encounter

== ENCOUNTER → 2016-11-09 | Outpatient (CLI) | payer BC ==
[2016-11-09 12:55] LABS: BASO % 0.6 %; BASO ABS # 0.04 K/uL (0-0.2); COMPLETE YES; EOS % 1.7 %; HEMATOCRIT 33.4 % (37-47); IG% 0.2 %; LYMPH % 37.9 %; LYMPH ABS # 2.45 K/uL (1.2-3.4); MEAN CELL VOLUME 82.1 fL (80-100); MEAN CORPUSCULAR HEMOGLOBIN 25.3 pg (25-34); MEAN CORPUSCULAR HGB CONC 30.8 g/dl (32-36); MEAN PLATELET VOLUME 9.4 fL (7.4-10.4); MONO % 10.1 %; NEUT % 49.5 %; PLATELET COUNT 399 K/uL (130-400); RED BLOOD COUNT 4.07 M/uL (4.2-5.4); WHITE BLOOD COUNT 6.46 K/uL (4.8-10.8)
== END | disposition home or self-care (01) ==
LOC: C.LAB1850 11:53
PROVIDERS: ATTEND Internal Medicine
DX: D64.9 Anemia, unspecified (principal)

== ENCOUNTER → 2017-01-05 | Outpatient (CLI) | payer BC ==
--- NOTE | 2017-01-05 14:53 | MAMMOGRAPHY REPORT ---
BILATERAL DIGITAL SCREENING MAMMOGRAM TOMOSYNTHESIS WITH CAD: 01/05/2017 CLINICAL HISTORY: Routine screening. Patient has no complaints. TECHNIQUE: Breast tomosynthesis in addition to standard 2D mammography was performed. Current study was also evaluated with a Computer Aided Detection (CAD) system. COMPARISON: Comparison is made to exams dated: 01/05/2016 mammogram, 01/21/2015 ultrasound biopsy, mammogram, 01/13/2015 mammogram, 12/31/2014 mammogram, and 11/07/2012 mammogram - [facility] BREAST COMPOSITION: There are scattered areas of fibroglandular density in both breasts. FINDINGS: No suspicious masses, calcifications, or areas of architectural distortion are noted in ei ther breast. There has been no significant interval change compared to prior exams. A biopsy marker clip is again noted in the left 12:00 breast. IMPRESSION: ACR BI-RADS CATEGORY 2: BENIGN There is no mammographic evidence of malignancy. A 1 year screening mammogram is recommended. The pa tient will receive written notification of the results. Approximately 10% of breast cancers are not detected with mammography. A negative mammographic report should not delay biopsy if a clinically suggestive mass is present. Alicia Aleman M.D. /:01/05/2017 12:41:32 Decision Unit Rn: Roslyn VALLADARES)(M), [facility] letter sent: Normal 1/2 BI-RADS Code: ACR BI-RADS Category 2: Benign
== END | disposition home or self-care (01) ==
LOC: C.MAMM 08:53
PROVIDERS: ATTEND Obstetrics & Gynecology
DX: Z12.31 Encounter for screening mammogram for malignant neoplasm of breast (principal)

== ENCOUNTER → 2017-01-13 | Outpatient (CLI) | payer BC ==
[2017-01-13 13:13] LABS: BASO % 0.6 %; BASO ABS # 0.04 K/uL (0-0.2); COMPLETE YES; EOS % 1.1 %; HEMATOCRIT 39.2 % (37-47); IG% 0.1 %; LYMPH % 35.8 %; LYMPH ABS # 2.59 K/uL (1.2-3.4); MEAN CELL VOLUME 77.6 fL (80-100); MEAN CORPUSCULAR HEMOGLOBIN 24.6 pg (25-34); MEAN CORPUSCULAR HGB CONC 31.6 g/dl (32-36); MEAN PLATELET VOLUME 9.4 fL (7.4-10.4); MONO % 6.9 %; NEUT % 55.5 %; PLATELET COUNT 353 K/uL (130-400); RED BLOOD COUNT 5.05 M/uL (4.2-5.4); WHITE BLOOD COUNT 7.24 K/uL (4.8-10.8)
== END | disposition home or self-care (01) ==
LOC: C.LAB1850 11:32
PROVIDERS: ATTEND Internal Medicine
DX: D64.9 Anemia, unspecified (principal)

== ENCOUNTER → 2017-01-31 | Outpatient (CLI) | payer BC ==
[2017-01-27 17:36] LABS: ALT/SGPT 22 U/L (12-78); AST/SGOT 11 U/L (15-37); BLOOD UREA NITROGEN 19 mg/dl (7-18); BUN/CREATININE RATIO 25.5 (10-20); CARBON DIOXIDE 31 mmol/L (21-32); CHLORIDE 99 mmol/L (98-107); CREATININE 0.73 mg/dl (0.60-1.20); GLUCOSE 99 mg/dl (70-99); POTASSIUM 3.8 mmol/L (3.5-5.1); SODIUM 134 mmol/L (136-145)
[2017-01-27 17:42] LABS: ALB/GLOB RATIO 0.9 (0.9-2); ALKALINE PHOSPHATASE 108 U/L (45-117); TOTAL IRON BINDING CAPACITY 420 mcg/dl (250-450)
--- NOTE | 2017-01-31 14:57 | DIAGNOSTIC IMAGING REPORT ---
MRI OF THE ABDOMEN WITH AND WITHOUT CONTRAST CLINICAL HISTORY: HEPATIC STEATOSIS, PANCREATIC LESION. COMPARISON STUDY: CT of the abdomen and pelvis October 14, 2016. TECHNIQUE: Utilizing a 1.5 Tiana magnet and dedicated coil, multiplanar, multiecho imaging of the abdomen was performed pre and postcontrast administration. Injection of 10 cc of Gadavist IV was uneventful. Post contrast imaging was performed utilizing dynamic enhancement. FINDINGS: There is no biliary or pancreatic ductal dilatation. The course and caliber of the main pancreatic duct is normal. There is no peripancreatic infiltration or peripancreatic fluid collections. No pancreatic mass is identified. Note is made of signal drop on the out of phase sequence within the pancreatic head which corresponds to the finding on prior CT. The possible pancreatic abnormality shown on CT of October 14, 2016 is due to differential fat within the pancreas. There is no abdominal adenopathy or ascites. There may be fatty infiltration of the liver. No hepatic lesions are present. The spleen, adrenal glands and kidneys are normal. There is no hydronephrosis. IMPRESSION: 1. No pancreatic mass identified. The possible pancreatic abnormality shown on prior CT was due to uneven fatty infiltration within the pancreas. 2. No biliary or pancreatic ductal dilatation. Electronically signed by: Carlos A Locke M.D. 01/31/2017 2:56 PM Dictated Date/Time: 01/31/2017 11:10 AM
== END | disposition home or self-care (01) ==
LOC: C.MRIBC 09:21
PROVIDERS: ATTEND Internal Medicine
DX: K76.0 Fatty (change of) liver, not elsewhere classified (principal); K86.9 Disease of pancreas, unspecified; D64.9 Anemia, unspecified